=== PATIENT | male | born 1980 | race Caucasian/White ===

== ENCOUNTER 2020-09-01 01:23 | Emergency (ER) | payer BC ==
[~2020-09-01] VITALS: Ht 182.9 cm; Wt 81.6 kg
[2020-09-01 02:22] VITALS: Ht 182.9 cm; Wt 81.6 kg
[2020-09-01 03:41] VITALS: BP 128/83
== END 2020-09-01 03:41 | disposition home or self-care (01) ==
LOC: ED 01:23
DX: T40.601A Poisoning by unspecified narcotics, accidental (unintentional), initial encounter (principal); Y92.89 Other specified places as the place of occurrence of the external cause
CPT/HCPCS: J7030